=== PATIENT | female | born 1960 | race Caucasian/White ===

== ENCOUNTER 2017-04-06 20:08 | Emergency (ER) | payer MEDICAID ==
[~2017-04-06] VITALS: Ht 160 cm; Wt 77.1 kg
[2017-04-06 20:10] VITALS: BP_SYST 152
[2017-04-06 21:05] LABS: BASOPHILS # (AUTO) 0.1 K/uL (0.0-0.2); BASOPHILS % (AUTO) 0.5 % (0.0-2.0); EOSINOPHILS # (AUTO) 0.4 K/uL (0.0-0.4); EOSINOPHILS % (AUTO) 3.9 % (0.0-4.0); HEMATOCRIT 34.9 % (36-48); HEMOGLOBIN 10.9 g/dL (12.0-16.0); LYMPHOCYTES % (AUTO) 27.6 % (20.5-51.5); MEAN CORPUSCULAR HEMOGLOBIN 20 pg (27-31); MEAN CORPUSCULAR HGB CONC 31 % (32-36); MEAN CORPUSCULAR VOLUME 64 fL (79.0-98.0); MONOCYTES # (AUTO) 0.7 K/uL (0.0-1.0); NEUTROPHILS # (AUTO) 6.8 K/uL (1.8-7.7); PLATELET COUNT (AUTO) 264 K/uL (130-430); RED BLOOD CELL COUNT(AUTO) 5.42 MIL/uL (4.2-6.2); RED CELL DISTRIBUTION WIDTH 14.8 % (9.0-15.0)
[2017-04-06 21:32] LABS: CREATININE 0.93 mg/dL (0.55-1.30); POTASSIUM 4.5 mmol/L (3.5-5.1)
[2017-04-06 21:43] LABS: ALBUMIN 3.1 g/dL (3.4-4.8); TOTAL BILIRUBIN 0.2 mg/dL (0.0-1.0)
[2017-04-06] MEDS ORDERED: KETOROLAC TROMETHAMINE 60 MG/2 ML VIAL IM ONE (22:30)
[2017-04-07 01:00] VITALS: BP_SYST 150
== END 2017-04-07 01:00 | disposition home or self-care (01) ==
LOC: SED 20:08
DX: R07.9 Chest pain, unspecified (principal); E11.9 Type 2 diabetes mellitus without complications; F32.9 Major depressive disorder, single episode, unspecified; Z98.890 Other specified postprocedural states
CPT/HCPCS: 36415; 71045; 80053; 83690; 83880; 84484; 85025; 93005; 96372; 99285; J1885

== ENCOUNTER 2018-12-31 15:10 | Emergency (ER) | payer MEDICAID ==
[~2018-12-31] VITALS: Ht 160 cm; Wt 70.3 kg
[2018-12-31 15:32] VITALS: BP_SYST 147
--- NOTE | 2018-12-31 17:20 | NUR ---
Patient to ER bed H1 to gown for evaluation. Side rails up. Report given to JULIETA BOCANEGRA.
--- NOTE | 2018-12-31 17:22 | NUR ---
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
--- NOTE | 2018-12-31 17:30 | NUR ---
Dr Caceres at bedside examining patient
--- NOTE | 2018-12-31 18:00 | NUR ---
Pt A&Ox4, VSS, respirations even and unlabored
[2018-12-31] MEDS ORDERED: KETOROLAC TROMETHAMINE 30 MG VIAL IM ONE (18:15)
[2018-12-31 18:55] VITALS: BP_SYST 147
--- NOTE | 2018-12-31 18:56 | NUR ---
Patient given written and verbal discharge instructions and verbalizes understanding. ER MD discussed with patient the results and treatment provided. Patient in stable condition. ID arm band removed. IV catheter removed intact and dressing applied, no active bleeding. Rx of Robaxin and Motrin given. Patient educated on pain management and to follow up with PMD. Pain Scale 2/10 tolerable for pt . Opportunity for questions provided and answered. Medication side effect fact sheet provided.
== END 2018-12-31 18:55 | disposition home or self-care (01) ==
LOC: SED 15:10
DX: S00.03XA Contusion of scalp, initial encounter (principal); M25.562 Pain in left knee; F32.9 Major depressive disorder, single episode, unspecified; E11.9 Type 2 diabetes mellitus without complications; W18.09XA Striking against other object with subsequent fall, initial encounter; Y93.89 Activity, other specified; Y92.89 Other specified places as the place of occurrence of the external cause; Y99.8 Other external cause status
CPT/HCPCS: 29505; 70450; 72125; 96372; 99284; J1885

== ENCOUNTER 2020-12-05 20:48 | Emergency (ER) | payer MEDICAID ==
[~2020-12-05] VITALS: Ht 160 cm; Wt 66.7 kg
[2020-12-05 21:03] VITALS: BP_SYST 160
--- NOTE | 2020-12-05 21:08 | NUR ---
Patient triaged and placed in waiting room. VSS and patient appears in no acute distress at this time. Accompanied by granddaughter, awaiting available bed, and MD notified of need for MSE.
--- NOTE | 2020-12-05 21:41 | NUR ---
Patient to ER bed 08 to gown for evaluation. Side rails up. Report given to SAHRA Arango
--- NOTE | 2020-12-05 21:43 | NUR ---
Pt brought by [email or web address], pt presents to ER with headache , bump on back of head and lower back pain after she fell while trying to get up from toilet, pt lost balance due to Hx of amputation on R leg on 2012, VSS, pt denies taking blood thinners, denies KO, VSS, no N/V noted, will cont to monitor.
--- NOTE | 2020-12-05 22:56 | NUR ---
Dr Wilkinson evaluating patient at bedside
--- NOTE | 2020-12-05 23:05 | NUR ---
Pt A&Ox4, resting in bed at this time, VSS
--- NOTE | 2020-12-05 23:06 | NUR ---
Report given to Mgagie BOCANEGRA
[2020-12-05] MEDS ORDERED: HYDROcodone/ACETAMIN 5-325 MG TAB (NORCO/ VICODIN) PO ONE (23:15)
[2020-12-05] MEDS ORDERED: HYDR-3917 PO (23:28)
--- NOTE | 2020-12-05 23:39 | NUR ---
patient returned from CT Scan.
--- NOTE | 2020-12-06 00:45 | NUR ---
bedside commode placed at bedside for patient. Grand daughter to assist patient to commode
--- NOTE | 2020-12-06 01:05 | NUR ---
dr. pinzon at bedside for results
[2020-12-06 01:10] VITALS: BP_SYST 132
--- NOTE | 2020-12-06 01:10 | NUR ---
Patient given written and verbal discharge instructions and verbalizes understanding. ER MD discussed with patient the results and treatment provided. Patient in stable condition. ID arm band removed. Rx of [place] given. Patient educated on pain management and to follow up with PMD. Pain Scale 0/10 Opportunity for questions provided and answered. Medication side effect fact sheet provided.
== END 2020-12-06 01:10 | disposition home or self-care (01) ==
LOC: SED 20:48
DX: S06.9X1A Unspecified intracranial injury with loss of consciousness of 30 minutes or less, initial encounter (principal); S16.1XXA Strain of muscle, fascia and tendon at neck level, initial encounter; M53.3 Sacrococcygeal disorders, not elsewhere classified; I10 Essential (primary) hypertension; E11.9 Type 2 diabetes mellitus without complications; K21.9 Gastro-esophageal reflux disease without esophagitis; Z79.899 Other long term (current) drug therapy; Z89.611 Acquired absence of right leg above knee; W01.198A Fall on same level from slipping, tripping and stumbling with subsequent striking against other object, initial encounter; Y93.89 Activity, other specified; Y92.89 Other specified places as the place of occurrence of the external cause; Y99.8 Other external cause status
CPT/HCPCS: 70470-TC; 72125-TC; 72192-TC; 76376; 99285